=== PATIENT | female | born 1950 | race Caucasian/White ===

== ENCOUNTER → 2021-10-26 | Outpatient (CLI) | payer BC ==
[~2021-10-26] MED LIST: METOPROLOL SUCC25 M1 PO; NORCO 325 MG-51 TAB PO
== END ==
LOC: MAMMO 11:18
DX: Z12.31 Encounter for screening mammogram for malignant neoplasm of breast (principal)

== ENCOUNTER → 2024-06-23 | Day surgery (SDC) | payer OTHER | LOC: MSO 09:29 | DX: Z12.11 Encounter for screening for malignant neoplasm of colon (principal); K57.30 Diverticulosis of large intestine without perforation or abscess without bleeding | CPT/HCPCS: 00812; J2704; J7120 ==

== ENCOUNTER → 2024-08-08 | Outpatient (CLI) | payer OTHER | LOC: MAMMO 09:00 | DX: Z12.31 Encounter for screening mammogram for malignant neoplasm of breast (principal) ==